=== PATIENT | female | born 1970 | race Caucasian/White ===

== ENCOUNTER 2018-04-21 06:06 | Day surgery (SDC) | payer BC ==
[~2018-04-21 06:06] MED LIST: Lactated Ringers 1,000 ML IV SCH
[2018-04-21] MEDS ORDERED: DIPRIVAN 200 MG/20 ML IV ONE (06:07)
--- NOTE | 2018-04-21 08:38 | OP ---
SURGERY DATE/TIME: 04/21/2018 0756 PREOPERATIVE DIAGNOSIS: Screening exam. POSTOPERATIVE DIAGNOSIS: Small rectal polyp. PROCEDURE: Colonoscopy with biopsy. SURGEON: Dr. Otero. ANESTHESIA: MAC. Medications given by anesthesia department. HISTORY: The patient is a 48 year-old white female presenting now for screening colonoscopy. She reports her mother had colon polyps. She was felt the need to have endoscopic evaluation. She was appraised of the risks of the procedure including the risk of perforation, phlebitis, untoward reaction to medication, bleeding and missed lesions. The patient verbalized her understanding and desired to have the procedure performed. DESCRIPTION OF PROCEDURE: The patient was given the medications by the anesthesia department. She had continuous pulse oximetry, ECG monitoring, intermittent blood pressure monitoring and tidal CO2 monitoring during the examination. She was placed in the left lateral decubitus position. A digital rectal examination was performed and revealed normal anal sphincter tone and no masses. The flexible Olympus pediatric colonoscope was used to intubate the rectum. A view of the colon was developed sequentially to the cecum. Upon insertion and withdrawal, including a retroflex view in the rectum was noted a small polyp in the rectum this was removed using cold biopsy technique completely destroying the lesion. Upon insertion and withdrawal including retroflex view in the rectum, no other mucosal lesions were encountered. The scope was removed from the patient who tolerated the procedure well and was sent back to OP recovery in good condition. The prep was noted to be fair to good.
[2018-04-21 09:32] VITALS: O2SAT 100
[2018-04-21 10:00] VITALS: BP 118/66; PULSE 68
== END 2018-04-21 09:55 | disposition home or self-care (01) ==
LOC: SDC 06:06
PROVIDERS: ATTEND Family Medicine
DX: Z12.11 Encounter for screening for malignant neoplasm of colon (principal); Z80.0 Family history of malignant neoplasm of digestive organs; K62.1 Rectal polyp
CPT/HCPCS: 88305; 94250; J2704

== ENCOUNTER 2020-05-26 06:01 | Day surgery (SDC) | payer BC ==
[2020-05-26] MEDS ORDERED: Lactated Ringers 1,000 ML IV SCH (06:30)
[2020-05-26] MEDS ORDERED: BUPIVACAINE 0.5% VIAL IJ ONE (06:36)
[2020-05-26] MEDS ORDERED: XYLOCAINE 1% HCL 20 ML MDV ONE (06:36)
[2020-05-26] MEDS ORDERED: CEFAZOLIN 2 GM-D5W BAG** 2 GM/50 ML ML IV SCH (07:00)
[2020-05-26] MEDS ORDERED: DIPRIVAN 200 MG/20 ML IV ONE ×3 (07:42→08:58)
[2020-05-26] MEDS ORDERED: Xylocaine-Mpf 2% 5 Ml Vial ONE (07:42)
[2020-05-26] MEDS ORDERED: Versed 2 MG/2 ML Injection ONE (07:43)
[2020-05-26] MEDS ORDERED: SUBLIMAZE 100 MCG/2 ML ONE ×3 (07:43→09:37)
[2020-05-26] MEDS ORDERED: PHENYLEPHRINE HCL ONE (09:15)
--- NOTE | 2020-05-26 09:35 | XRAY ---
Indication: ORIF right 5th metatarsal. Intraoperative fluoroscopy was provided for 1 minute 45 seconds. 4 digital spot images demonstrates single orthopedic screw fixating proximal 5th metatarsal fracture. Correlate with intraoperative findings/report.
--- NOTE | 2020-05-26 10:01 | XRAY ---
1 minute and 45 seconds fluoroscopy time in surgery for ORIF of the 5th metatarsal of the right foot.
[2020-05-26 10:51] VITALS: BP 130/79; PULSE 75; O2SAT 98
--- NOTE | 2020-05-26 13:02 | OP ---
SURGERY DATE/TIME: 05/26/2020 0822 INDICATION FOR SURGERY: Kim is a very pleasant 50 year old female who presented to my clinic for a second opinion status post a fifth metatarsal fracture that was sustained in March. The patient has been seen repeatedly and there are no indications of healing on the fifth metatarsal with some further diastasis. The patient was initially weight bearing and her compliance was relatively good for the first six weeks. Following this she was able to bear weight which we noted an increasing pain as well as radiographic evidence of diastasis of these two fragments indicating that there was delayed healing at this time. The patient was advised that we may proceed with surgical intervention early in the New Year. However, she is adamant about getting the surgical intervention sooner than later due to the amount of pain that she has been experiencing over the course of the last several weeks. The patient understands all risks, complications and benefit of the surgical intervention which include but not limited to failure of surgical intervention and need for further surgical intervention in the future, delayed union or nonunion of the fracture site and possible skin infection. All of this was presented to the patient prior to surgical intervention and she still wishes to proceed with the operation. Plenty of time was allowed for the patient to ask questions which were answered to her apparent satisfaction and it is with that we proceeded with surgical intervention. 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 PROCEDURE: Open reduction internal fixation of fifth metatarsal right foot. SURGEON: Negrito Nur DPM. REGISTERED NURSING PROFESSOR: None. ANESTHESIA: Monitored anesthesia care plus local. HEMOSTASIS: Pressure dressing. ESTIMATED BLOOD LOSS: Less than 10 cc. MATERIALS: 2-0 Vicryl, 3-0 Nylon and 4.0 solid chamfered screw partially threaded. INJECTABLES: 30 cc of a 1:1 mixture of 0.5% Marcaine plain and 1% lidocaine plain injected into the right ankle in ankle block-type fashion. DESCRIPTION OF PROCEDURE AND FINDINGS: The patient was assessed by the anesthesia team prior to bringing the patient into the OR. When brought into the OR she was placed on the OR table in supine position and monitored anesthesia care was administered. At this time the right lower extremity was prepped and draped in the typical sterile fashion. A preoperative sterile block was applied to the right ankle consisting of 30 cc of 1% lidocaine and 0.5% Marcaine plain in a typical ankle block-type fashion. At this time the lower extremity was prepped and draped in the typical sterile fashion and lowered onto the surgical field. At this time C-arm was utilized to assess the position of the fifth metatarsal fracture and a K-wire was introduced from proximal to distal down the medullary cavity of the fifth metatarsal. At this time this was checked on AP, oblique and lateral views indicating that there was adequate access to the fifth metatarsal medullary cavity. At this time a measure was utilized to determine the length of the screw. A cannulated drill was drilled over the guide just past the fracture site. Following this an [employer] allograft mixed with 4 cc of bone marrow aspirate was applied into the medullary cavity in order to promote bone healing and a 35 mm 4-0 solid chamfered screw was introduced from the posterior to anterior proximal to distal within the medullary cavity until the head engaged and the fracture site compressed. At this time the incision site which measured approximately 1 cm in length, was flushed with copious amounts of sterile saline. A 2-0 Vicryl was utilized to coapt the subcutaneous skin edges and two horizontal mattress-type fashion sutures of 3-0 Nylon were utilized to coapt the skin edges. The patient was reversed from anesthesia. The tourniquet was never used due to the percutaneous nature of the surgery. The patient was reversed from anesthesia and returned to the postoperative anesthesia care unit with vital signs stable and vascular status intact. The patient tolerated the anesthesia as well as the procedure without complications. Postoperative orders as follows: 1) Keep postoperative dressing clean, dry and intact. Do not alter the dressing in any way without consulting Dr. Negrito petit. Dressing is to remain dry throughout the postoperative course. 2) Elevate operative extremity above the level of the heart to reduce inflammation. 3) Ice behind knee to reduce inflammation. 4) Weight bearing status: Nonweight bearing to the right lower extremity. Full weight bearing to the left lower extremity with the assistance of crutches and a knee scooter. 5) Postoperative pain control: Hydrocodone and acetaminophen 5/325 mg every four hours for breakthrough pain, alternate with ibuprofen 600 mg every six hours PRN breakthrough pain. 6) Postoperative infection prophylaxis: Keflex 500 mg every six hours for ten days. 7) Postoperative deep venous thrombosis prophylaxis, blood clot prophylaxis: Aspirin 325 mg p.o. daily until full weight bearing. 8) Follow up in clinic within one week of procedure. Discharge the patient to home when criteria has been met.
== END 2020-05-26 11:05 | disposition home or self-care (01) ==
LOC: SDC 06:01
PROVIDERS: ATTEND Podiatrist Foot & Ankle Surgery
DX: S92.354A Nondisplaced fracture of fifth metatarsal bone, right foot, initial encounter for closed fracture (principal); M79.671 Pain in right foot
CPT/HCPCS: 28485; 73620; 76000; 84703; J0690; J2250; J2370; J2704; J3010